=== PATIENT | male | born 1990 | race American Indian/Alaskan Native ===

== ENCOUNTER 2018-07-07 14:20 | Emergency (ER) | payer OTHER ==
[2018-07-07 14:35] VITALS: BP 125/71
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
[2018-07-07] MEDS ORDERED: BOOSTRIX IM ONE (15:42)
== END 2018-07-07 16:16 | disposition home or self-care (01) ==
LOC: ED 14:20
DX: S01.511A Laceration without foreign body of lip, initial encounter (principal); S63.91XA Sprain of unspecified part of right wrist and hand, initial encounter; S80.11XA Contusion of right lower leg, initial encounter; J45.909 Unspecified asthma, uncomplicated; F12.10 Cannabis abuse, uncomplicated; V47.5XXA Car driver injured in collision with fixed or stationary object in traffic accident, initial encounter; Y93.89 Activity, other specified; Y92.410 Unspecified street and highway as the place of occurrence of the external cause; Y99.8 Other external cause status
CPT/HCPCS: 90471; 90715; 99282

== ENCOUNTER 2018-09-18 09:03 | Emergency (ER) | payer SELFPAY ==
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
[2018-09-18] MEDS ORDERED: ZITHROMAX PO ONE (09:50)
[2018-09-18] MEDS ORDERED: XYLOCAINE 1% MPF 5 mL INFILTRATI ONE (09:50)
[2018-09-18] MEDS ORDERED: ROCEPHIN IM ONE (09:50)
[2018-09-18 10:19] VITALS: BP 128/80
[2018-09-18 10:31] LABS: Bilirubin,Urine NEG (Negative); Blood,Urine SM (Negative); Color,Urine Yellow (Yellow); Protein,Urine <15 mg/dL mg/dL (Negative); Urobilinogen,Urine < 2.0 mg/dL (<2.0)
[2018-09-18 10:33] LABS: Mucus,Urine FEW /HPF
== END 2018-09-18 10:18 | disposition home or self-care (01) ==
LOC: ED 09:03
DX: A64 Unspecified sexually transmitted disease (principal); J45.909 Unspecified asthma, uncomplicated; F12.10 Cannabis abuse, uncomplicated
CPT/HCPCS: 81001; 87591; 96372; 99283; J0696